=== PATIENT | male | born 1955 | race Hispanic/Latino ===

== ENCOUNTER 2018-08-23 18:12 | Emergency (ER) | payer OTHER ==
[2018-08-23] MEDS ORDERED: PREDNISONE 20 MG TABLET ONE (18:37)
== END 2018-08-23 18:47 | disposition home or self-care (01) ==
LOC: EDH 18:12
DX: G51.0 Bell's palsy (principal)

== ENCOUNTER → 2020-08-10 | Outpatient (CLI) | payer OTHER | END | disposition home or self-care (01) | LOC: SHCH 08:25 | PROVIDERS: ATTEND Internal Medicine Cardiovascular Disease | DX: R06.00 Dyspnea, unspecified (principal) | CPT/HCPCS: 93306; 93356 ==